=== PATIENT | male | born 1980 | race Hispanic/Latino ===

== ENCOUNTER 2023-01-11 10:45 | Emergency (ER) | payer SELFPAY ==
[2023-01-11 11:02] VITALS: BP 157/55; PULSE 63; RESP 12; TEMP 36.6; O2SAT 98
--- NOTE | 2023-01-11 11:23 | ED.URI ---
HPI - URI/Sore Throat General Chief Complaint: Upper Respiratory Infection Stated Complaint: Cough Time Seen by Provider: 01/11/23 11:10 Source: patient Mode of arrival: ambulatory Limitations: no limitations History of Present Illness HPI Narrative: Rajeev is a 42-year-old male patient presenting to the clinic today with complaints of a cough x3 weeks. He reports that he had an upper respiratory infection 3 weeks ago and has lingering cough. He has been taking [id number] cough medicines without relief. He denies any fever or chills. Cough is nonproductive. MD elicited complaint: cough Related Data Allergies Allergy/AdvReac Type Severity Reaction Status Date / Time No Known Allergies Allergy Verified 01/11/23 11:13 Review of Systems Review of Systems: Pertinent positives per HPI. Patient denies any fever, chills, rash, headache, visual changes, dizziness, shortness of breath, chest pain, palpitations, nausea, vomiting, diarrhea, constipation, abdominal pain, or any urinary issues. PMFSH Comments At the time of my signature, I reviewed and agree with the nursing past medical, surgical, social, and family history. There is no relevant family history pertinent to the patient complaint. Exam Narrative: General: Well-developed, well nourished, in no apparent distress Head: Normocephalic, atraumatic Eyes: Pupils equally round and reactive to light bilaterally, EOM intact, sclera and conjunctive clear, no discharge, lids normal Ears: TMs intact and clear, ear canals clear, no drainage, grossly hearing normal. Nose: Nares patent, clear nasal discharge, no inflammation, no sinus tenderness. Mouth: Oral pharynx red without lesions or masses, good dentition, MMM. Neck: Supple, trachea midline, no enlargement of anterior or posterior cervical nodes, no thyroid masses or goiter palpable. Cardio: Regular rate and rhythm, s1 and s2 normal, no murmur appreciated. Resp: Clear to auscultation bilaterally, no rhonchi, rales, wheezing or rubs Course Course Emergency Course: Portions of this record may have been created with voice recognition software. Level of Care: Express Care Visit Vital Signs Vital signs: Vital Signs Temperature 36.6 C 01/11/23 11:02 Pulse Rate 63 01/11/23 11:02 Respiratory Rate 12 01/11/23 11:02 Blood Pressure 157/55 H 01/11/23 11:02 Pulse Oximetry 98 01/11/23 11:02 Oxygen Delivery Room Air 01/11/23 11:02 Temperature 36.6 C 01/11/23 11:02 Pulse Rate 63 01/11/23 11:02 Respiratory Rate 12 01/11/23 11:02 Blood Pressure 157/55 H 01/11/23 11:02 Pulse Oximetry 98 01/11/23 11:02 Oxygen Delivery Room Air 01/11/23 11:02 Vital signs reviewed MDM - URI/Sore Throat MDM Narrative Medical decision making narrative: At the time of visit patient is resting comfortably on the exam table. Strep screen was performed and was negative. I suspect the patient has postviral cough syndrome. Prescription for prednisone was sent to the pharmacy and supportive measures were discussed with the patient and he voiced understanding of discharge instructions agrees to treatment plan Differential Diagnosis Differential diagnosis: Likely upper respiratory infection, otitis media, sinusitis, viral infection, bronchitis, influenza, pharyngitis and other (COVID) Lab Data Labs: Strep Screen Presumptive Negative *(Reference Range: Negative)* Discharge Plan Discharge Clinical Impression: Post-viral cough syndrome Patient Disposition: Home, Self-Care Condition: Stable Instructions: Antibiotic Form, Acute Cough (ED) Additional Instructions: Take prescription medications only as prescribed-prednisone Increase fluids and stay well hydrated Tylenol/motrin for pain/fever Flonase and OTC antihistamines as directed Vicks vapor rub to open sinuses Sinus rinses for congestion Cepacol spray
== END 2023-01-11 11:43 | disposition home or self-care (01) ==
PROVIDERS: Emergency Provider Nurse Practitioner Family
DX: R05.9 Cough, unspecified (principal)
CPT/HCPCS: 87081; 87880; 99203; G0463